=== PATIENT | male | born 1995 | race Caucasian/White ===

== ENCOUNTER 2018-02-26 09:51 | Emergency (ER) | payer SELFPAY ==
--- NOTE | 2018-02-26 10:45 | ER Report ---
History and Physical Time Seen By MD: 10:30 Hx. of Stated Complaint: NOT SLEEPING, NOT EATING, ANXIETY/DEPRESSION "REALLY BAD", HALLUCINATIONS. PT SEE [facility]. BEEN GOING ON FOR MONTHS BUT WORSE IN LAST TWO MONTHS. HPI/ROS CHIEF COMPLAINT: agitation HISTORY OF PRESENT ILLNESS: The patient has history of depression and significant alcohol use, but also runs in family. Patient states he is here because he feels like he is "breaking down", and "at the end of his rope". He denies overt suicidal or homicidal ideation. He presents with his from whom he is intermittently . He was not living with her until a week ago. During the time he was not living with her, he admits to significant daily alc ohol use, and cocaine use. Patient last drank alcohol on Wednesday, 6 days ago. He denies using street drugs this week but does admit to Adderall 3 days ago. States he took 8 Adderall. He is having difficulty sleeping because is afraid something bad was at the morning for sleep, so sleeps 2-3 hours a night. Last night, he thought he heard her saw people in the house, police were called, the house was cleared, patient continued to be agitated and concerned despite his helping called him down. He denies physical symptoms including headache, nausea, vomiting, chest pain, fever, chills, abdominal pain. He denies ongoing medical problems. REVIEW OF SYSTEMS: Constitutional: No fever, no chills. Eyes: No discharge. ENT: No sore throat. Cardiovascular: No chest pain, no palpitations. Respiratory: No cough, no shortness of breath. Gastrointestinal: No abdominal pain, no vomiting. Genitourinary: No hematuria. Musculoskeletal: No back pain. Skin: No rashes. Neurological: No headache. Remainder of the 14 system rev: Yes Allergies: Coded Allergies: No Known Drug Allergies (Unverified , 02/26/18) Home Meds No Active Prescriptions or Reported Meds Reviewed Nurses Notes: Yes Hx Smoking: Yes Hx Substance Use Disorder: Yes (ADDERALL) Hx Alcohol Use: Yes ("I DON'T DRINK ANYMORE", QUIT LAST WEEK, 12 PK OR "BOTTLE" PER DAY PRIOR) Constitutional Vital Sign - Last 24 Hours 02/26/18 09:55 Temp 98.9 Pulse 78 Resp 16 B/P (MAP) 110/90 Pulse Ox 99 O2 Delivery Room Air Physical Exam General Appearance: [The patient is alert, has no immediate need for airway protection and no signs of toxicity.] [ ] Eyes: Pupils equal and round no pallor or injection. ENT, Mouth: Mucous membranes are moist. bilateral horizontal nystagmus Respiratory: There are no retractions, lungs are clear to auscultation. Cardiovascular: significant sinus arrhythmia with respiration, regular rate, no murmurs. Gastrointestinal: Abdomen is soft and non tender, no masses, bowel sounds normal. Neurological: alert, oriented, mild psychomotor agitation, no sig resting tremor. Skin: Warm and dry, no rashes. Musculoskeletal: Extremities are nontender, nonswollen and have full range of motion. DIFFERENTIAL DIAGNOSIS: After history and physical exam differential diagnosis was considered for depression, suicidal, drug use, organic etiology of symptoms. Medical Decision Making Data Points Result Diagram: 02/26/18 1054 02/26/18 1054 Laboratory Hematology Test 02/26/18 10:54 Red Blood Count 4.67 M/uL (4.00-5.60) Mean Corpuscular Volume 96.7 fL (80.0-96.0) Mean Corpuscular Hemoglobin 33.0 pg (26.0-33.0) Mean Corpuscular Hemoglobin Concent 34.2 g/dL (32.0-36.0) Red Cell Distribution Width 12.7 % (11.5-14.5) Mean Platelet Volume 8.7 fL (7.2-11.1) Neutrophils (%) (Auto) 76.2 % (39.4-72.5) Lymphocytes (%) (Auto) 13.5 % (17.6-49.6) Monocytes (%) (Auto) 9.7 % (4.1-12.4) Eosinophils (%) (Auto) 0.1 % (0.4-6.7) Basophils (%) (Auto) 0.5 % (0.3-1.4) Nucleated RBC Relative Count (auto) 0.0 /100WBC Neutrophils # (Auto) 11.9 K/uL (2.0-7.4) Lymphocytes # (Auto) 2.1 K/uL (1.3-3.6) Monocytes # (Auto) 1.5 K/uL (0.3-1.0) Eosinophils # (Auto) 0.0 K/uL (0.0-0.5) Basophils # (Auto) 0.1 K/uL (0.0-0.1) Nucleated RBC Absolute Count (auto) 0.00 K/uL Sodium Level 139 mmol/L (137-145) Potassium Level 3.6 mmol/L (3.5-5.0) Chloride Level 102 mmol/L (98-107) Carbon Dioxide Level 26 mmol/L (22-30) Blood Urea Nitrogen 18 mg/dl (9-21) Creatinine 1.10 mg/dl (0.66-1.25) Glomerular Filtration Rate Calc > 60.0 Random Glucose 90 mg/dl (75-110) Calcium Level 9.8 mg/dl (8.4-10.2) Total Bilirubin 1.0 mg/dl (0.2-1.3) Aspartate Amino Transf (AST/SGOT) 30 U/L (0-35) Alanine Aminotransferase (ALT/SGPT) 32 U/L (0-56) Alkaline Phosphatase 61 U/L (0-126) Total Protein 8.0 g/dl (6.3-8.2) Albumin 4.5 g/dl (3.5-5.0) Lipase 99 U/L (23-300) Salicylates Level < 10 mg/L Salicylate Last Dose Date na Acetaminophen Level < 10 ug/ml Chemistry Test 02/26/18 10:54 White Blood Count 15.6 k/uL (4.5-11.0) Red Blood Count 4.67 M/uL (4.00-5.60) Hemoglobin 15.4 g/dL (14.0-18.0) Hematocrit 45.2 % (42.0-52.0) Mean Corpuscular Volume 96.7 fL (80.0-96.0) Mean Corpuscular Hemoglobin 33.0 pg (26.0-33.0) Mean Corpuscular Hemoglobin Concent 34.2 g/dL (32.0-36.0) Red Cell Distribution Width 12.7 % (11.5-14.5) Platelet Count 224 K/uL (150-450) Mean Platelet Volume 8.7 fL (7.2-11.1) Neutrophils (%) (Auto) 76.2 % (39.4-72.5) Lymphocytes (%) (Auto) 13.5 % (17.6-49.6) Monocytes (%) (Auto) 9.7 % (4.1-12.4) Eosinophils (%) (Auto) 0.1 % (0.4-6.7) Basophils (%) (Auto) 0.5 % (0.3-1.4) Nucleated RBC Relative Count (auto) 0.0 /100WBC Neutrophils # (Auto) 11.9 K/uL (2.0-7.4) Lymphocytes # (Auto) 2.1 K/uL (1.3-3.6) Monocytes # (Auto) 1.5 K/uL (0.3-1.0) Eosinophils # (Auto) 0.0 K/uL (0.0-0.5) Basophils # (Auto) 0.1 K/uL (0.0-0.1) Nucleated RBC Absolute Count (auto) 0.00 K/uL Glomerular Filtration Rate Calc > 60.0 Calcium Level 9.8 mg/dl (8.4-10.2) Total Bilirubin 1.0 mg/dl (0.2-1.3) Aspartate Amino Transf (AST/SGOT) 30 U/L (0-35) Alanine Aminotransferase (ALT/SGPT) 32 U/L (0-56) Alkaline Phosphatase 61 U/L (0-126) Total Protein 8.0 g/dl (6.3-8.2) Albumin 4.5 g/dl (3.5-5.0) Lipase 99 U/L (23-300) Salicylates Level < 10 mg/L Salicylate Last Dose Date na Acetaminophen Level < 10 ug/ml Toxicology Test 02/26/18 10:54 Salicylates Level < 10 mg/L Salicylate Last Dose Date na Acetaminophen Level < 10 ug/ml ED Course/Re-evaluation ED Course Pt presents with sgs/symptoms of psychomotor agitation likely due to functional etiology /etoh or drug use or w/d. Cooperative in ED. No e/o organic etiology. evaluates in ED. After evaluation of options, patient takes resources but does not want admission. As neither he nor feel he is threat for suicidal/physical harm, this is reasonable, however will discharge with strict rtn precautions. I noted leukocytosis and discussed with pt; no e/o bact illness clinically at this time and on re-evaluation. Most likely viral etiology or acute phase reactant due to stress. Pt does understand possibility of occult bact illness and will rtn for concerning physical symptoms. Decision to Disposition Date: Feb 26, 2018 Decision to Disposition Time: 11:49 Depart Departure Latest Vital Signs Vital Signs Date Time Temp Pulse Resp B/P (MAP) Pulse Ox O2 Delivery O2 Flow Rate FiO2 02/26/18 09:55 98.9 78 16 110/90 99 Room Air Impression: Primary Impression: Adjustment disorder Condition: Improved Disposition: HOME OR SELF-CARE New Scripts No Active Prescriptions or Reported Meds Patient Instructions: Anxiety (ED) Additional Instructions: As we discussed, avoid stimulants, cut back on caffiene and no caffiene after noon. For sleep, take melatonin 3-5mg 2 hrs before sleep, check out a free brigido for guided relaxation meditation. Return immediately for concerning symptoms or concern for your safety or that of those around you. Problem Qualifiers Primary Impression: Adjustment disorder Adjustment disorder type: with mixed anxiety and depressed mood Qualified Codes: F43.23 - Adjustment disorder with mixed anxiety and depressed mood SANDRA JOY MD Feb 26, 2018 10:45
[2018-02-26 11:01] LABS: PLATELET COUNT, AUTOMATED 224 K/uL (150-450)
[2018-02-26 11:44] VITALS: BP 110/72
== END 2018-02-26 11:50 | disposition home or self-care (01) ==
LOC: ER 10:52
DX: F43.23 Adjustment disorder with mixed anxiety and depressed mood (principal); F14.10 Cocaine abuse, uncomplicated; F10.10 Alcohol abuse, uncomplicated
CPT/HCPCS: 80329; 82040; 82247; 82310; 82374; 82435; 82565; 82947; 83690; 84075; 84132; 84155; 84295; 84443; 84450; 84460; 84520; 85025; 99282